=== PATIENT | male | born 1980 | race African-American/Black ===

== ENCOUNTER 2021-03-11 18:17 | Inpatient (IN) | payer OTHER, SELFPAY ==
[2021-03-11] MEDS ORDERED: Furosemide 40 MG/4 ML VIAL ONE (19:29)
[2021-03-11] MEDS ORDERED: Nitroglycerin 2% Ointment 1 INCH/1 GM Packet ONE (19:30)
[2021-03-11 19:48] LABS: ALT (SGPT) 24 U/L (8-55); AST (SGOT) 25 U/L (5-34); Albumin 3.2 g/dL (3.5-5.0); Alkaline Phosphatase 127 U/L (40-110); Anion Gap 15 mmol/L (10-20); BUN (Urea Nitrogen) 24 mg/dL (8.9-20.6); Bilirubin, Total 0.9 mg/dL (0.2-1.2); Calc. Creatinine Clearance 0 mL/min (70-130); Calcium 8.7 mg/dL (7.8-10.44); Carbon Dioxide 23 mmol/L (22-29); Chloride 104 mmol/L (98-107); Globulin 3.9 g/dL (2.4-3.5); Glucose 145 mg/dL (70-105); Potassium 4.6 mmol/L (3.5-5.1); Protein, Total 7.1 g/dL (6.0-8.3); Sodium 137 mmol/L (136-145)
[2021-03-11 20:04] LABS: #Eosinphils 0.1 10x3/uL (0.0-0.5); #Monocytes 0.4 10x3/uL (0.0-1.1); #Neutrophils 4.1 10x3/uL (1.5-8.4); %Basophils 0.2 % (0.0-2.0); %Eosinophils 1.6 % (0.0-6.0); %Lymphocytes 19.1 % (18.0-47.0); %Monocytes 7.1 % (0.0-10.0); %Neutrophils 71.8 % (40.0-75.0); Hemoglobin 11.4 g/dL (13.5-17.5); Mean Corpuscular HGB CONC 30.9 g/dL (32.0-36.0); Mean Corpuscular Hemoglobin 24.2 pg (27.0-33.0); Mean Corpuscular Volume 78.3 fl (81.2-95.1); Mean Platelet Volume 11.5 fl (7.4-10.4); RBC Distribution Width 17.2 % (11.5-14.5); Red Blood Cell (RBC) Count 4.71 10x6/uL (4.32-5.72); White Blood Cell (WBC) Count 5.6 10x3/uL (3.5-10.5)
[2021-03-11 20:05] LABS: Platelet Count 177 10x3/uL (150-450)
[2021-03-11 20:09] LABS: CKMB 1.7 ng/mL (0-6.6)
[2021-03-11 21:55] LABS: SARS-CoV-2 NAA Rapid Test Not Detected (NotDetected)
[2021-03-11 23:14] VITALS: BMI 39.5
[2021-03-12 04:45] LABS: #Eosinphils 0.1 10x3/uL (0.0-0.5); #Monocytes 0.5 10x3/uL (0.0-1.1); #Neutrophils 3.8 10x3/uL (1.5-8.4); %Basophils 0.5 % (0.0-2.0); %Eosinophils 2.3 % (0.0-6.0); %Lymphocytes 20.6 % (18.0-47.0); %Monocytes 9.3 % (0.0-10.0); %Neutrophils 66.9 % (40.0-75.0); Mean Corpuscular HGB CONC 31.2 g/dL (32.0-36.0); Mean Corpuscular Hemoglobin 24.3 pg (27.0-33.0); Mean Corpuscular Volume 78.1 fl (81.2-95.1); Mean Platelet Volume 11.6 fl (7.4-10.4); Platelet Count 190 10x3/uL (150-450); Red Blood Cell (RBC) Count 4.52 10x6/uL (4.32-5.72); White Blood Cell (WBC) Count 5.7 10x3/uL (3.5-10.5)
[2021-03-12 05:10] LABS: Troponin I 0.026 ng/mL (< 0.028)
[2021-03-12 05:14] LABS: Anion Gap 15 mmol/L (10-20); BUN (Urea Nitrogen) 23 mg/dL (8.9-20.6); Calc. Creatinine Clearance 137 mL/min (70-130); Carbon Dioxide 24 mmol/L (22-29); Chloride 104 mmol/L (98-107); Glucose 75 mg/dL (70-105); Magnesium 2.1 mg/dL (1.6-2.6); Potassium 3.9 mmol/L (3.5-5.1); Sodium 139 mmol/L (136-145)
[2021-03-12 05:23] LABS: HIV (1/2) Antibody/Antigen Non-Reactive (NonReactive); HIV 1/2 INDEX 0.09 S/CO (<1.00)
[2021-03-12 05:25] LABS: Ferritin 55.77 ng/mL (22-322); Thyroid Stimulating Hormone 5.2252 uIU/mL (0.35-4.94)
[2021-03-12] MEDS ORDERED: Furosemide 20 MG/2 ML VIAL ONE (05:30)
[2021-03-12] MEDS: Furosemide 40 MG/4 ML VIAL SLOW IVP SCH ×3 (05:46→14:26)
[2021-03-12] MEDS ORDERED: Spironolactone 25 MG TAB PO SCH (09:00)
[2021-03-12] MEDS: Spironolactone 25 MG TAB PO SCH (09:43)
[2021-03-12] MEDS: Carvedilol 25 MG TAB PO SCH ×2 (09:43→17:00)
[2021-03-12] MEDS: Lisinopril 20 MG TAB PO SCH (09:43)
[2021-03-12] MEDS: Potassium Chloride 20 MEQ TAB PO SCH (09:44)
[2021-03-12] MEDS: Gabapentin 300 MG CAP PO SCH ×2 (09:44→20:49)
[2021-03-12] MEDS: Empagliflozin 10 MG TAB PO SCH (09:45)
[2021-03-12] MEDS: Glimepiride 2 MG TAB PO SCH ×2 (09:46→17:00)
[2021-03-12] MEDS: Enoxaparin Sodium 40 MG/0.4 ML SYRINGE SC SCH (11:38)
[2021-03-12] MEDS ORDERED: Prevnar 13-Val Conj/PF 0.5 ML SYRINGE IM ONE (21:00)
[2021-03-12] MEDS ORDERED: Rosuvastatin 20 MG TAB PO SCH (21:00)
[2021-03-13] MEDS: Carvedilol 25 MG TAB PO SCH (06:36)
[2021-03-13] MEDS: Furosemide 40 MG/4 ML VIAL SLOW IVP SCH (06:36)
[2021-03-13] MEDS: Glimepiride 2 MG TAB PO SCH (08:30)
[2021-03-13] MEDS: Empagliflozin 10 MG TAB PO SCH (09:24)
[2021-03-13] MEDS: Enoxaparin Sodium 40 MG/0.4 ML SYRINGE SC SCH (09:24)
[2021-03-13] MEDS: Spironolactone 25 MG TAB PO SCH (09:25)
[2021-03-13] MEDS: Potassium Chloride 20 MEQ TAB PO SCH (09:25)
[2021-03-13] MEDS: Lisinopril 20 MG TAB PO SCH (09:25)
[2021-03-13] MEDS: Gabapentin 300 MG CAP PO SCH (09:26)
[2021-03-13 11:36] VITALS: BP 126/90; TEMP 98.8
== END 2021-03-13 13:20 | disposition home or self-care (01) | DRG 291 ==
LOC: CSHERS 18:17 → UNDOADMIN 22:55 → CSHTELE 22:55
PROVIDERS: ADMIT Family Medicine; ATTEND Hospitalist
DX: I13.0 Hypertensive heart and chronic kidney disease with heart failure and stage 1 through stage 4 chronic kidney disease, or unspecified chronic kidney disease (principal); I50.23 Acute on chronic systolic (congestive) heart failure; Z68.39 Body mass index [BMI] 39.0-39.9, adult; E11.22 Type 2 diabetes mellitus with diabetic chronic kidney disease; N18.30 Chronic kidney disease, stage 3 unspecified; E66.01 Morbid (severe) obesity due to excess calories; Z89.512 Acquired absence of left leg below knee; Z20.822 Contact with and (suspected) exposure to COVID-19
CPT/HCPCS: 0240U; 36415; 36416; 71045; 80048; 80053; 82553; 82728; 83735; 83880; 84443; 84484; 85025; 87389; 93005; 93010; 96374; J1650; J1940

== ENCOUNTER 2021-10-12 10:18 | Outpatient (CLI) | payer SELFPAY | END 2021-10-12 10:19 | disposition home or self-care (01) | LOC: CSHWCC 10:18 | PROVIDERS: ATTEND Nurse Practitioner Family | DX: I87.2 Venous insufficiency (chronic) (peripheral) (principal); E11.621 Type 2 diabetes mellitus with foot ulcer; L97.422 Non-pressure chronic ulcer of left heel and midfoot with fat layer exposed; L97.822 Non-pressure chronic ulcer of other part of left lower leg with fat layer exposed; E66.01 Morbid (severe) obesity due to excess calories; E78.2 Mixed hyperlipidemia; I10 Essential (primary) hypertension; R60.0 Localized edema | CPT/HCPCS: 99213; G0463 ==

== ENCOUNTER 2021-10-26 09:31 | Outpatient (CLI) | payer SELFPAY | END 2021-10-26 09:32 | disposition home or self-care (01) | LOC: CSHWCC 09:31 | PROVIDERS: ATTEND Nurse Practitioner Family | DX: E11.621 Type 2 diabetes mellitus with foot ulcer (principal); L97.509 Non-pressure chronic ulcer of other part of unspecified foot with unspecified severity; E11.622 Type 2 diabetes mellitus with other skin ulcer; L97.822 Non-pressure chronic ulcer of other part of left lower leg with fat layer exposed; R60.0 Localized edema; E66.01 Morbid (severe) obesity due to excess calories; E78.2 Mixed hyperlipidemia; I10 Essential (primary) hypertension; I87.2 Venous insufficiency (chronic) (peripheral) | CPT/HCPCS: 11042; 99213; G0463 ==

== ENCOUNTER 2022-04-12 14:37 | Outpatient (CLI) | payer OTHER | END 2022-04-12 14:38 | disposition home or self-care (01) | LOC: CSHWCC 14:37 | PROVIDERS: ATTEND Nurse Practitioner Family | DX: I87.332 Chronic venous hypertension (idiopathic) with ulcer and inflammation of left lower extremity (principal); L97.822 Non-pressure chronic ulcer of other part of left lower leg with fat layer exposed | CPT/HCPCS: 99213; G0463 ==

== ENCOUNTER 2022-10-25 13:38 | Outpatient (CLI) | payer OTHER | END 2022-10-25 13:39 | disposition home or self-care (01) | LOC: CSHWCC 13:38 | PROVIDERS: ATTEND Nurse Practitioner Family | DX: T87.89 Other complications of amputation stump (principal); E11.621 Type 2 diabetes mellitus with foot ulcer; L97.412 Non-pressure chronic ulcer of right heel and midfoot with fat layer exposed; L97.822 Non-pressure chronic ulcer of other part of left lower leg with fat layer exposed; R60.0 Localized edema; Z89.512 Acquired absence of left leg below knee | CPT/HCPCS: 99213; G0463 ==

== ENCOUNTER 2022-11-29 11:15 | Outpatient (CLI) | payer OTHER | END 2022-11-29 11:16 | disposition home or self-care (01) | LOC: CSHWCC 11:15 | PROVIDERS: ATTEND Nurse Practitioner Family | DX: E11.621 Type 2 diabetes mellitus with foot ulcer (principal); L97.412 Non-pressure chronic ulcer of right heel and midfoot with fat layer exposed; L97.822 Non-pressure chronic ulcer of other part of left lower leg with fat layer exposed; Z89.512 Acquired absence of left leg below knee; R60.0 Localized edema | CPT/HCPCS: 99213; G0463 ==

== ENCOUNTER 2023-01-12 11:45 | Emergency (ER) | payer OTHER, SELFPAY ==
[2023-01-12 13:18] LABS: ALT (SGPT) 7 U/L (8-55); AST (SGOT) 16 U/L (5-34); Alkaline Phosphatase 86 U/L (40-110); Anion Gap 15 mmol/L (10-20); BUN (Urea Nitrogen) 13 mg/dL (8.9-20.6); Calc. Creatinine Clearance 0 mL/min (70-130); Calcium 9.3 mg/dL (7.8-10.44); Carbon Dioxide 22 mmol/L (22-29); Chloride 106 mmol/L (98-107); Estimated GFR 58; Globulin 4.3 g/dL (2.4-3.5); Glucose 95 mg/dL (70-105); Potassium 3.7 mmol/L (3.5-5.1); Protein, Total 8.3 g/dL (6.0-8.3); Sodium 139 mmol/L (136-145)
[2023-01-12 13:28] LABS: #Eosinphils 0.2 10x3/uL (0.0-0.5); #Monocytes 0.4 10x3/uL (0.0-1.1); #Neutrophils 5.4 10x3/uL (1.5-8.4); %Basophils 0.3 % (0.0-2.0); %Eosinophils 3.3 % (0.0-6.0); %Lymphocytes 11.1 % (18.0-47.0); %Monocytes 6.2 % (0.0-10.0); %Neutrophils 78.5 % (40.0-75.0); Hemoglobin 12.2 g/dL (13.5-17.5); Mean Corpuscular HGB CONC 31.7 g/dL (32.0-36.0); Mean Corpuscular Hemoglobin 25.8 pg (27.0-33.0); Mean Corpuscular Volume 81.6 fl (81.2-95.1); Mean Platelet Volume 10.8 fl (7.4-10.4); Platelet Count 226 10x3/uL (150-450); RBC Distribution Width 14.5 % (11.5-14.5); Red Blood Cell (RBC) Count 4.72 10x6/uL (4.32-5.72); White Blood Cell (WBC) Count 6.9 10x3/uL (3.5-10.5)
== END 2023-01-12 14:12 | disposition home or self-care (01) ==
LOC: CSHERS 11:45
DX: L03.116 Cellulitis of left lower limb (principal); E11.9 Type 2 diabetes mellitus without complications; I10 Essential (primary) hypertension
CPT/HCPCS: 80053; 83605; 85025; 99283

== ENCOUNTER 2023-01-16 13:02 | Outpatient (CLI) | payer OTHER | END 2023-01-16 13:03 | disposition home or self-care (01) | LOC: CSHWCC 13:02 | PROVIDERS: ATTEND Nurse Practitioner Family | DX: E11.621 Type 2 diabetes mellitus with foot ulcer (principal); L97.822 Non-pressure chronic ulcer of other part of left lower leg with fat layer exposed; L97.412 Non-pressure chronic ulcer of right heel and midfoot with fat layer exposed; R60.0 Localized edema | CPT/HCPCS: 87070; 87077; 87186; 87205 ==

== ENCOUNTER 2023-03-05 22:22 | Inpatient (IN) | payer OTHER, SELFPAY ==
[2023-03-05 23:54] LABS: #Eosinphils 0.3 10x3/uL (0.0-0.5); #Monocytes 0.5 10x3/uL (0.0-1.1); #Neutrophils 5.5 10x3/uL (1.5-8.4); %Basophils 0.3 % (0.0-2.0); %Eosinophils 3.9 % (0.0-6.0); %Lymphocytes 8.4 % (18.0-47.0); %Monocytes 7.1 % (0.0-10.0); Hemoglobin 11.8 g/dL (13.5-17.5); Mean Corpuscular Hemoglobin 25.5 pg (27.0-33.0); Mean Corpuscular Volume 79.9 fl (81.2-95.1); Mean Platelet Volume 11.9 fl (7.4-10.4); Platelet Count 161 10x3/uL (150-450); RBC Distribution Width 16.1 % (11.5-14.5); Red Blood Cell (RBC) Count 4.62 10x6/uL (4.32-5.72); White Blood Cell (WBC) Count 6.9 10x3/uL (3.5-10.5)
[2023-03-06 00:09] LABS: ALT (SGPT) 7 U/L (8-55); AST (SGOT) 17 U/L (5-34); Albumin 3.9 g/dL (3.5-5.0); Alkaline Phosphatase 86 U/L (40-110); Anion Gap 16 mmol/L (10-20); BUN (Urea Nitrogen) 17 mg/dL (8.9-20.6); Bilirubin, Total 1.9 mg/dL (0.2-1.2); Calc. Creatinine Clearance 0 mL/min (70-130); Calcium 9.3 mg/dL (7.8-10.44); Carbon Dioxide 22 mmol/L (22-29); Chloride 105 mmol/L (98-107); Estimated GFR 55; Glucose 77 mg/dL (70-105); Magnesium 2.1 mg/dL (1.6-2.6); Potassium 4.2 mmol/L (3.5-5.1); Protein, Total 7.9 g/dL (6.0-8.3); Sodium 139 mmol/L (136-145)
[2023-03-06] MEDS ORDERED: Furosemide 40 MG/4 ML VIAL ONE ×3 (00:31→13:50)
[2023-03-06] MEDS ORDERED: Dextrose 5% in Water 1,000 ML IV PRN (01:35)
[2023-03-06] MEDS ORDERED: Senokot S 8.6-50 MG TAB PO PRN (01:35)
[2023-03-06] MEDS ORDERED: Dextrose 50% Abboject 50 ML SYRINGE SLOW IVP PRN (01:35)
[2023-03-06] MEDS ORDERED: Acetaminophen 325 MG TAB PO PRN (01:35)
[2023-03-06] MEDS ORDERED: Guaifenesin DM 100-10/5 ML UDCUP PO PRN (01:35)
[2023-03-06] MEDS ORDERED: Nitroglycerin 0.4 MG TAB (25 Tab Bottle) SL PRN (01:48)
[2023-03-06 04:17] LABS: Anion Gap 16 mmol/L (10-20); BUN (Urea Nitrogen) 17 mg/dL (8.9-20.6); Calc. Creatinine Clearance 0 mL/min (70-130); Calcium 9.3 mg/dL (7.8-10.44); Carbon Dioxide 22 mmol/L (22-29); Chloride 106 mmol/L (98-107); Estimated GFR 56; Glucose 96 mg/dL (70-105); Potassium 4.2 mmol/L (3.5-5.1); Sodium 140 mmol/L (136-145)
[2023-03-06 04:40] LABS: CKMB 3.9 ng/mL (0-6.6)
[2023-03-06] MEDS: Furosemide 40 MG/4 ML VIAL SLOW IVP SCH ×2 (06:22→14:48)
[2023-03-06] MEDS ORDERED: Calcium Carbonate 500 MG ChewTAB ONE (07:37)
[2023-03-06] MEDS ORDERED: Carvedilol 12.5 MG TAB ONE (07:38)
[2023-03-06] MEDS: Calcium Carbonate 500 MG ChewTAB PO PRN (07:50)
[2023-03-06] MEDS: Carvedilol 12.5 MG TAB PO SCH ×2 (07:50→16:48)
[2023-03-06] MEDS ORDERED: Potassium Chloride 20 MEQ TAB ONE (08:44)
[2023-03-06] MEDS ORDERED: Lisinopril 10 MG TAB ONE (08:45)
[2023-03-06] MEDS: Lisinopril 10 MG TAB PO SCH (08:53)
[2023-03-06] MEDS: Potassium Chloride 20 MEQ TAB PO SCH (08:53)
[2023-03-06] MEDS: Spironolactone 25 MG TAB PO SCH (08:53)
[2023-03-06 10:47] LABS: Free T4 (Free Thyroxine) 1.16 ng/dL (0.70-1.48)
[2023-03-06] MEDS ORDERED: Ondansetron PF 4 MG/2 ML Vial IVP PRN (11:40)
[2023-03-06] MEDS ORDERED: Ondansetron PF 4 MG/2 ML Vial ONE (11:44)
[2023-03-06] MEDS ORDERED: Ondansetron ODT 4 MG TAB PO PRN (12:17)
[2023-03-06 15:59] VITALS: BMI 44.6
[2023-03-06] MEDS: Rosuvastatin 20 MG TAB PO SCH (21:44)
[2023-03-07] MEDS: Furosemide 40 MG/4 ML VIAL SLOW IVP SCH ×2 (05:58→15:33)
[2023-03-07 08:21] LABS: #Eosinphils 0.2 10x3/uL (0.0-0.5); #Monocytes 0.4 10x3/uL (0.0-1.1); #Neutrophils 3.7 10x3/uL (1.5-8.4); %Basophils 0.2 % (0.0-2.0); %Eosinophils 4.3 % (0.0-6.0); %Lymphocytes 12.5 % (18.0-47.0); %Monocytes 8.2 % (0.0-10.0); %Neutrophils 74.6 % (40.0-75.0); Hemoglobin 11.9 g/dL (13.5-17.5); Mean Corpuscular HGB CONC 31.8 g/dL (32.0-36.0); Mean Corpuscular Hemoglobin 25.3 pg (27.0-33.0); Mean Corpuscular Volume 79.4 fl (81.2-95.1); Mean Platelet Volume 12.2 fl (7.4-10.4); Platelet Count 175 10x3/uL (150-450); Red Blood Cell (RBC) Count 4.71 10x6/uL (4.32-5.72); White Blood Cell (WBC) Count 4.9 10x3/uL (3.5-10.5)
[2023-03-07 08:32] LABS: Anion Gap 14 mmol/L (10-20); BUN (Urea Nitrogen) 18 mg/dL (8.9-20.6); Calc. Creatinine Clearance 126 mL/min (70-130); Calcium 9.1 mg/dL (7.8-10.44); Carbon Dioxide 24 mmol/L (22-29); Chloride 105 mmol/L (98-107); Estimated GFR 51; Glucose 104 mg/dL (70-105); Potassium 4.2 mmol/L (3.5-5.1); Sodium 139 mmol/L (136-145)
[2023-03-07] MEDS: Lisinopril 10 MG TAB PO SCH (09:45)
[2023-03-07] MEDS: Carvedilol 12.5 MG TAB PO SCH ×2 (09:45→15:33)
[2023-03-07] MEDS: Potassium Chloride 20 MEQ TAB PO SCH (09:45)
[2023-03-07] MEDS: Spironolactone 25 MG TAB PO SCH (09:45)
[2023-03-07] MEDS: Rosuvastatin 20 MG TAB PO SCH (21:27)
[2023-03-08] MEDS: Furosemide 40 MG/4 ML VIAL SLOW IVP SCH ×2 (06:38→15:36)
[2023-03-08] MEDS: Carvedilol 12.5 MG TAB PO SCH ×2 (06:38→15:36)
[2023-03-08] MEDS: Calcium Carbonate 500 MG ChewTAB PO PRN (06:49)
[2023-03-08] MEDS: Lisinopril 10 MG TAB PO SCH (08:34)
[2023-03-08] MEDS: Spironolactone 25 MG TAB PO SCH (08:35)
[2023-03-08] MEDS: Potassium Chloride 20 MEQ TAB PO SCH (08:35)
[2023-03-08 11:43] LABS: INR-International Normal Ratio 1.2
[2023-03-08] MEDS ORDERED: Lidocaine 1% PF 5 ML VIAL ONE (12:35)
[2023-03-08] MEDS ORDERED: Sodium Bicarbonate 2.5 MEQ/5 ML VIAL ONE (12:36)
[2023-03-08 14:27] LABS: Body Fluid Source Ascites Body Fluid
[2023-03-08 14:28] LABS: BF Color Yellow; Clarity Cloudy/Turbid (Clear); Tube # EDTA
[2023-03-08 15:10] LABS: #Eosinphils 0.2 10x3/uL (0.0-0.5); #Monocytes 0.5 10x3/uL (0.0-1.1); #Neutrophils 3.8 10x3/uL (1.5-8.4); %Basophils 0.4 % (0.0-2.0); %Eosinophils 3.6 % (0.0-6.0); %Lymphocytes 11.7 % (18.0-47.0); %Monocytes 8.9 % (0.0-10.0); %Neutrophils 75.2 % (40.0-75.0); Mean Corpuscular HGB CONC 31.6 g/dL (32.0-36.0); Mean Corpuscular Volume 79.1 fl (81.2-95.1); Mean Platelet Volume 12.5 fl (7.4-10.4); Platelet Count 144 10x3/uL (150-450); RBC Distribution Width 16.1 % (11.5-14.5)
[2023-03-08 15:25] LABS: BF Segmented Neutrophils 40 %; Cell Count Non Hematic 27 %; Lymphocytes 33 %
[2023-03-08 15:31] LABS: ALT (SGPT) 7 U/L (8-55); AST (SGOT) 16 U/L (5-34); Albumin 3.3 g/dL (3.5-5.0); Alkaline Phosphatase 71 U/L (40-110); Anion Gap 13 mmol/L (10-20); BUN (Urea Nitrogen) 21 mg/dL (8.9-20.6); Bilirubin, Total 1.1 mg/dL (0.2-1.2); Calc. Creatinine Clearance 109 mL/min (70-130); Calcium 8.7 mg/dL (7.8-10.44); Carbon Dioxide 24 mmol/L (22-29); Chloride 106 mmol/L (98-107); Estimated GFR 43; Globulin 3.4 g/dL (2.4-3.5); Glucose 108 mg/dL (70-105); Magnesium 1.9 mg/dL (1.6-2.6); Potassium 4.3 mmol/L (3.5-5.1); Protein, Total 6.7 g/dL (6.0-8.3); Sodium 139 mmol/L (136-145)
[2023-03-08] MEDS: Albumin 25% 25 GM/100 ML BOT IVPB SCH ×2 (18:20→23:45)
[2023-03-08 19:13] LABS: Fluid, Protein 4.8 g/dL (Not Available)
[2023-03-08] MEDS: Rosuvastatin 20 MG TAB PO SCH (21:22)
[2023-03-09 05:04] LABS: #Eosinphils 0.1 10x3/uL (0.0-0.5); #Monocytes 0.4 10x3/uL (0.0-1.1); #Neutrophils 3.5 10x3/uL (1.5-8.4); %Basophils 0.4 % (0.0-2.0); %Lymphocytes 12.6 % (18.0-47.0); %Neutrophils 75.6 % (40.0-75.0); Hemoglobin 11.2 g/dL (13.5-17.5); Mean Corpuscular HGB CONC 31.5 g/dL (32.0-36.0); Mean Corpuscular Hemoglobin 24.9 pg (27.0-33.0); Mean Corpuscular Volume 79.3 fl (81.2-95.1); Mean Platelet Volume 12.5 fl (7.4-10.4); Platelet Count 140 10x3/uL (150-450); RBC Distribution Width 16.1 % (11.5-14.5); Red Blood Cell (RBC) Count 4.49 10x6/uL (4.32-5.72); White Blood Cell (WBC) Count 4.6 10x3/uL (3.5-10.5)
[2023-03-09 05:24] LABS: Anion Gap 16 mmol/L (10-20); BUN (Urea Nitrogen) 22 mg/dL (8.9-20.6); Calc. Creatinine Clearance 111 mL/min (70-130); Carbon Dioxide 21 mmol/L (22-29); Chloride 107 mmol/L (98-107); Estimated GFR 44; Glucose 95 mg/dL (70-105); Iron 32 ug/dL (65-175); Iron Binding Capacity, Total 264 mcg/dL (261-462); Potassium 4.2 mmol/L (3.5-5.1); Sodium 140 mmol/L (136-145)
[2023-03-09 05:25] LABS: Iron 33 ug/dL (65-175); Iron Binding Capacity, Total 269 mcg/dL (261-462)
[2023-03-09 05:43] LABS: Ferritin 81.74 ng/mL (22-322)
[2023-03-09] MEDS: Furosemide 40 MG/4 ML VIAL SLOW IVP SCH (06:01)
[2023-03-09] MEDS: Carvedilol 12.5 MG TAB PO SCH (06:02)
[2023-03-09] MEDS: Albumin 25% 25 GM/100 ML BOT IVPB SCH (06:02)
[2023-03-09] MEDS ORDERED: Ferrous Sulfate 325 MG TAB PO SCH (08:00)
[2023-03-09] MEDS: Potassium Chloride 20 MEQ TAB PO SCH (09:06)
[2023-03-09] MEDS: Spironolactone 25 MG TAB PO SCH (09:06)
[2023-03-09] MEDS: Lisinopril 10 MG TAB PO SCH (09:06)
[2023-03-09 11:23] VITALS: BP 118/75; TEMP 97.8
[2023-03-09 17:37] LABS: HBCM Index 0.17 S/CO (0-0.79); Hep A IgM AB Non-Reactive (NonReactive); Hep A IgM S/CO 0.18 S/CO (0-0.79); Hep C IgG Ab Non-Reactive (NonReactive); Hep C Index 0.17 S/CO (0-0.79); Hepatitis B Core IgM Abs Non-Reactive (NonReactive)
[2023-03-09 19:18] LABS: HBSAg Index 5893.29 S/CO (0-0.99)
[2023-03-09 19:20] LABS: Hep B Surf Ag Reflx Confirmation S/CO (NonReactive)
[2023-03-10] MEDS ORDERED: Furosemide 40 MG TAB PO SCH (07:30)
== END 2023-03-09 13:26 | disposition home or self-care (01) | DRG 291 ==
LOC: CSHERS 22:22 → CSHERHOLD 03-06 04:41 → CSHTELE 03-06 15:20
PROVIDERS: ADMIT Student in an Organized Health Care Education/Training Program; ATTEND Family Medicine
PROC: 0W9G3ZZ Drainage of Peritoneal Cavity, Percutaneous Approach (ICD-10-PCS; principal; 2023-03-08)
DX: I13.0 Hypertensive heart and chronic kidney disease with heart failure and stage 1 through stage 4 chronic kidney disease, or unspecified chronic kidney disease (principal); I50.23 Acute on chronic systolic (congestive) heart failure; R18.8 Other ascites; Z68.42 Body mass index [BMI] 45.0-49.9, adult; E78.5 Hyperlipidemia, unspecified; N18.30 Chronic kidney disease, stage 3 unspecified; E11.22 Type 2 diabetes mellitus with diabetic chronic kidney disease; D63.1 Anemia in chronic kidney disease; E11.649 Type 2 diabetes mellitus with hypoglycemia without coma; E11.621 Type 2 diabetes mellitus with foot ulcer; L97.509 Non-pressure chronic ulcer of other part of unspecified foot with unspecified severity; E66.01 Morbid (severe) obesity due to excess calories; I50.82 Biventricular heart failure; I42.9 Cardiomyopathy, unspecified; R33.9 Retention of urine, unspecified; Z89.512 Acquired absence of left leg below knee; Z88.2 Allergy status to sulfonamides; Z88.1 Allergy status to other antibiotic agents; Z88.8 Allergy status to other drugs, medicaments and biological substances; Z79.899 Other long term (current) drug therapy; Z82.49 Family history of ischemic heart disease and other diseases of the circulatory system; Z83.3 Family history of diabetes mellitus; Z91.198 Patient's noncompliance with other medical treatment and regimen for other reason
CPT/HCPCS: 36415; 36416; 49083; 71045; 76705; 80048; 80053; 80074; 82553; 82728; 82945; 83540; 83550; 83615; 83735; 83880; 84157; 84439; 84443; 84481; 84484; 85025; 85610; 87070; 87205; 87340; 88112; 89051; 93005; 93010; 93306; 96374; 97139; J1650; J1940; J2405; P9047

== ENCOUNTER 2023-05-01 09:19 | Outpatient (CLI) | payer OTHER | END 2023-05-01 09:20 | disposition home or self-care (01) | LOC: CSHWCC 09:19 | PROVIDERS: ATTEND Nurse Practitioner Family | DX: R60.0 Localized edema (principal) | CPT/HCPCS: 29581 ==

== ENCOUNTER 2023-07-31 13:43 | Outpatient (CLI) | payer MEDICARE, OTHER | END 2023-07-31 13:44 | disposition home or self-care (01) | LOC: CSHWCC 13:43 | PROVIDERS: ATTEND Nurse Practitioner Family | DX: I87.331 Chronic venous hypertension (idiopathic) with ulcer and inflammation of right lower extremity (principal); L97.811 Non-pressure chronic ulcer of other part of right lower leg limited to breakdown of skin; R60.0 Localized edema | CPT/HCPCS: 97139; G0463; 99213 ==